=== PATIENT | male | born 1985 | race Caucasian/White ===

== ENCOUNTER 2018-03-13 17:06 | Emergency (ER) | payer MEDICAID ==
[~2018-03-13] VITALS: Ht 172.7 cm; Wt 77.3 kg
--- NOTE | 2018-03-13 18:30 | NUR ---
REPORT RECIEVED ASSUMED CARE OF PT.
[2018-03-13 18:41] LABS: BASOPHILS % (AUTO) 0.8 % (0-1); EOSINOPHILS % (AUTO) 0.2 % (0-6); HEMATOCRIT 41.4 % (42.0-52.0); HEMOGLOBIN 13.9 g/dl (14.0-17.9); LYMPHOCYTES # (AUTO) 0.7 X10'3 (1.1-4.8); LYMPHOCYTES % (AUTO) 31.2 % (21-51); MEAN CORPUSCULAR HEMOGLOBIN 31.5 PG (27.0-31.0); MEAN CORPUSCULAR HGB CONC 33.7 % (33.0-36.5); MEAN CORPUSCULAR VOLUME 93.6 FL (78-98); MEAN PLATELET VOLUME 7.6 FL (7.4-10.4); MONOCYTES # (AUTO) 0.4 X10'3 (0-0.9); MONOCYTES % (AUTO) 16.5 % (2-12); NEUTROPHILS # (AUTO) 1.1 X10'3 (1.8-7.7); NEUTROPHILS % (AUTO) 51.3 % (42-75); PLATELET COUNT 152 X10'3 (140-440); RED BLOOD COUNT 4.43 X10'6 (4.70-6.10); RED CELL DISTRIBUTION WIDTH 11.8 % (11.5-14.5); WHITE BLOOD COUNT 2.2 X10'3 (4.5-11.0)
[2018-03-13 18:57] LABS: ALANINE AMINOTRANSFERASE 35 U/L (12-78); ALBUMIN 3.4 G/DL (3.4-5.0); ALKALINE PHOSPHATASE 40 IU/L (46-116); ANION GAP 10 (8-16); ASPARTATE AMINO TRANSFERASE 39 U/L (10-37); BILIRUBIN,TOTAL 0.2 MG/DL (0.1-1.0); BLOOD UREA NITROGEN 10 MG/DL (7-18); BUN/CREATININE RATIO 10.6 (5.4-32.0); CALCIUM 8.4 MG/DL (8.5-10.1); CHLORIDE 95 MMOL/L (99-107); CREATININE 0.94 MG/DL (0.60-1.10); GLUCOSE 107 MG/DL (70-104); SODIUM 132 MMOL/L (135-145); TOTAL CARBON DIOXIDE 27.3 MMOL/L (24-32); TOTAL PROTEIN 6.9 G/DL (6.4-8.2); eGFR > 90 ML/MIN
[2018-03-13 19:03] LABS: PARTIAL THROMBOPLASTIN TIME 32 SECONDS (22-32)
[2018-03-13] MEDS ORDERED: azithromycin 250mg tablet PO ONE (19:05)
[2018-03-13] MEDS ORDERED: normal saline 1000ML IV soln IVB ONE (19:05)
[2018-03-13] MEDS ORDERED: AZIT250T PO (19:11)
[2018-03-13] MEDS ORDERED: ipratropium/albuterol 3ml nebule NEB ONE (19:45)
[2018-03-13 20:32] LABS: TOTAL CELLS COUNTED 100
[2018-03-13 20:33] LABS: PLATELET ESTIMATE NORMAL
[2018-03-13 21:06] VITALS: BP 168/66
== END 2018-03-13 21:07 | disposition home or self-care (01) ==
LOC: ER 17:06
DX: J18.9 Pneumonia, unspecified organism (principal); R11.10 Vomiting, unspecified; R19.7 Diarrhea, unspecified; J45.909 Unspecified asthma, uncomplicated; Z79.2 Long term (current) use of antibiotics
CPT/HCPCS: 36415; 71045; 80053; 85025; 85610; 85730; 94640; 94760; 96360; 99283; J7030